=== PATIENT | male | born 1940 | race Caucasian/White ===

== ENCOUNTER 2022-06-22 21:24 | Emergency (ER) | payer OTHER ==
[~2022-06-22] VITALS: Ht 177.8 cm; Wt 75.0 kg
[2022-06-22] MEDS ORDERED: LIDOCAINE 2% 5ML JELLY UROJET TOP ONE (21:35)
[2022-06-22 22:00] VITALS: BP 167/101
[2022-06-22] MEDS ORDERED: ISOVUE-370 76% 100ML VIAL As Ordered ONE (22:36)
== END 2022-06-23 00:42 | disposition home or self-care (01) ==
LOC: M ED 21:24
DX: R31.9 Hematuria, unspecified (principal); R33.9 Retention of urine, unspecified; I10 Essential (primary) hypertension; N40.3 Nodular prostate with lower urinary tract symptoms; K57.30 Diverticulosis of large intestine without perforation or abscess without bleeding
CPT/HCPCS: 51703; 74178; 81000; 81015; 87086; 99284; Q9967

== ENCOUNTER 2024-03-15 12:07 | Inpatient (IN) | payer OTHER ==
[~2024-03-15] VITALS: Ht 175.3 cm; Wt 66.8 kg
[2024-03-15] MEDS ORDERED: LISI20TA33 PO (12:13)
[2024-03-15] MEDS ORDERED: FLOM0.4C39 PO (12:13)
[2024-03-15] MEDS ORDERED: LORazepam 2 MG TAB PO PRN (13:20)
[2024-03-15 13:41] LABS: BASO % 0.4 % (0.0-1.0); EOS % 0.1 % (0.0-3.0); HEMOGLOBIN 13.6 g/dl (13.5-17.5); LYMPH # 0.5 10^3/uL (1.5-5.0); MEAN CORPUSCULAR HEMOGLOBIN 36.9 pg (27.0-33.0); MEAN CORPUSCULAR HGB CONC 35.8 g/dl (32.0-36.5); MONO # 0.7 10^3/uL (0.0-0.8); MONO % 7.1 % (2.0-8.0); NEUTROPHILS # 8.5 10^3/uL (1.5-8.5); PLATELET COUNT, AUTOMATED 258 10^3/uL (150-450); RED BLOOD COUNT 3.69 10^6/uL (4.30-6.10); WHITE BLOOD COUNT 9.8 10^3/uL (4.0-10.0)
[2024-03-15 14:12] LABS: CK-MB VALUE MASS 2.6 NG/ML (<3.6); ETHYL ALCOHOL (ETHANOL) < 0.003 % (0.000-0.010); MAGNESIUM LEVEL 1.5 MG/DL (1.8-2.4)
[2024-03-15 14:15] LABS: FREE T4 1.06 NG/DL (0.89-1.76); THYROID STIMULATING HORMONE 2.707 uIU/ML (0.55-4.78)
[2024-03-15] MEDS: MULTIVITAMINS/MINERALS THERAP 1 TAB PO SCH (14:15)
[2024-03-15 14:16] LABS: VITAMIN B12 LEVEL 571 PG/ML (211-911)
[2024-03-15] MEDS: THIAMINE 100 MG TAB PO SCH (14:16)
[2024-03-15] MEDS: FOLIC ACID 1MG TAB PO SCH (14:16)
[2024-03-15 14:20] LABS: CPK CREATINE PHOSPHOKINASE 97 U/L (46-171); FOLATE 4.58 NG/ML (>5.4); MB/CK RELATIVE INDEX 2.68 (< OR =4)
[2024-03-15] MEDS: MAG SULF 1GM/100ML (MAG RUN) 1 GM in IV 1 EA IV ONE (14:54)
[2024-03-15 14:59] LABS: ALBUMIN 2.6 G/DL (3.2-5.2); ALKALINE PHOSPHATASE 185 U/L (46-116); ALT/SGPT 57 U/L (7.0-40); AST/SGOT 94 U/L (<34); BILIRUBIN,DIRECT 0.4 MG/DL (<0.4); TOTAL PROTEIN 6.1 G/DL (5.7-8.2)
[2024-03-15 15:28] LABS: CK-MB VALUE MASS 2.2 NG/ML (<3.6)
[2024-03-15 15:34] LABS: MB/CK RELATIVE INDEX 2.39 (< OR =4)
[2024-03-15] MEDS: NS 1,000 ML IV SCH (15:42)
[2024-03-15] MEDS ORDERED: HYDR-3490 PO (16:24)
[2024-03-15] MEDS ORDERED: LISI40TA4 PO (16:24)
[2024-03-15] MEDS ORDERED: hydrALAZINE 20MG/ML 1ML VIAL IV PRN (16:30)
[2024-03-15] MEDS: LOSARTAN 50MG TABLET PO ONE (16:53)
[2024-03-15 17:56] VITALS: BP 154/89; TEMP 97.4; O2SAT 99
[2024-03-15] MEDS: OXAZEPAM 10MG CAP PO SCH (18:12)
[2024-03-15 19:19] VITALS: BP 125/63; TEMP 97.6; O2SAT 99
[2024-03-15 23:12] LABS: AMPHETAMINES LEVEL URINE NEGATIVE (NEGATIVE); BENZODIAZEPINES URINE NEGATIVE (NEGATIVE)
[2024-03-15 23:13] LABS: BARBITURATES URINE NEGATIVE (NEGATIVE); CANNABINOIDS URINE NEGATIVE (NEGATIVE); COCAINE METABOLITE URINE NEGATIVE (NEGATIVE); METHADONE URINE NEGATIVE (NEGATIVE); OPIATES URINE NEGATIVE (NEGATIVE); PHENCYCLIDINE URINE NEGATIVE (NEGATIVE)
[2024-03-15 23:40] VITALS: BP 117/65; TEMP 97.6; O2SAT 97
[2024-03-16] VITALS (12 sets, daily range): BP systolic 72–157; BP diastolic 42–77; TEMP 96–97; O2SAT 97–100
[2024-03-16] MEDS: cloNIDine 0.1MG TABLET PO SCH
[2024-03-16 07:09] LABS: HEMATOCRIT 34.3 % (42.0-52.0); HEMOGLOBIN 12.1 g/dl (13.5-17.5); MEAN CORPUSCULAR HGB CONC 35.3 g/dl (32.0-36.5); MEAN CORPUSCULAR VOLUME 104.9 fl (80.0-96.0); PLATELET COUNT, AUTOMATED 224 10^3/uL (150-450); RED BLOOD COUNT 3.27 10^6/uL (4.30-6.10); WHITE BLOOD COUNT 6.1 10^3/uL (4.0-10.0)
[2024-03-16 07:15] LABS: BLOOD UREA NITROGEN 12 MG/DL (9-23); CALCIUM LEVEL 8.2 MG/DL (8.3-10.6); CARBON DIOXIDE LEVEL 28 MMOL/L (20-31); CHLORIDE LEVEL 105 MMOL/L (98-107); CREATININE FOR GFR 0.99 MG/DL (0.70-1.30); GLOMERULAR FILTRATION RATE > 60.0 (>35); GLUCOSE, FASTING 94 MG/DL (74-106); MAGNESIUM LEVEL 1.8 MG/DL (1.8-2.4); POTASSIUM SERUM 4.6 MMOL/L (3.5-5.1); SODIUM LEVEL 137 MMOL/L (136-145)
[2024-03-16 07:16] LABS: CHOLESTEROL LEVEL 149 MG/DL (<200); CHOLESTEROL RISK RATIO 2.07 (<5); HDL CHOLESTEROL 71.9 MG/DL (>40); LDL CHOLESTEROL 66.9 MG/DL (<100); NON-HDL-C 77.1 MG/DL; TRIGLYCERIDES LEVEL 51 MG/DL (<150)
[2024-03-16 07:20] LABS: THYROID STIMULATING HORMONE 2.822 uIU/ML (0.55-4.78)
[2024-03-16 07:37] LABS: HEPATITIS B SURFACE ANTIGEN NEGATIVE (NEGATIVE)
[2024-03-16 07:53] LABS: HEPATITIS C VIRUS ABY INDEX 0.03 INDEX (<0.8)
[2024-03-16 07:54] LABS: HEPATITIS B CORE ANTIBODY IGM NEGATIVE (NEGATIVE)
[2024-03-16] MEDS: NS 1,000 ML IV ONE ×2 (08:55→10:10)
[2024-03-16] MEDS: MIDODRINE 5 MG TAB PO SCH (08:55)
[2024-03-16] MEDS ORDERED: LOSARTAN 50MG TABLET PO SCH (09:00)
[2024-03-16 10:12] LABS: ABG BASE EXCESS -1.7 (-2.0-2.0); ABG HCO3 22.8 MMOL/L (22.0-26.0); ABG PARTIAL PRESSURE CO2 37.6 mmHg (35.0-45.0); ABG PARTIAL PRESSURE O2 82.3 mmHg (75.0-100.0); ABG TOTAL CO2 23.9 MMOL/L (23.0-31.0)
[2024-03-16] MEDS: cefTRIAXone SOD 1 GM in D5W MINI-BAG PLUS 50 ML IV SCH (11:23)
[2024-03-17] VITALS (7 sets, daily range): BP systolic 142–178; BP diastolic 74–90; TEMP 97.9–98.3; O2SAT 98–99
[2024-03-17] MEDS ORDERED: ISOVUE-370 76% 100ML VIAL As Ordered ONE (07:17)
[2024-03-17 08:19] LABS: HEMATOCRIT 32.6 % (42.0-52.0); HEMOGLOBIN 11.4 g/dl (13.5-17.5); MEAN CORPUSCULAR HEMOGLOBIN 37.5 pg (27.0-33.0); MEAN CORPUSCULAR VOLUME 107.2 fl (80.0-96.0); PLATELET COUNT, AUTOMATED 219 10^3/uL (150-450); RED BLOOD COUNT 3.04 10^6/uL (4.30-6.10)
[2024-03-17 08:38] LABS: BLOOD UREA NITROGEN 9 MG/DL (9-23); CALCIUM LEVEL 7.2 MG/DL (8.3-10.6); CARBON DIOXIDE LEVEL 25 MMOL/L (20-31); CHLORIDE LEVEL 108 MMOL/L (98-107); CREATININE FOR GFR 0.84 MG/DL (0.70-1.30); GLOMERULAR FILTRATION RATE > 60.0 (>35); MAGNESIUM LEVEL 1.5 MG/DL (1.8-2.4); POTASSIUM SERUM 3.9 MMOL/L (3.5-5.1); SODIUM LEVEL 137 MMOL/L (136-145)
[2024-03-17 08:47] LABS: GLUCOSE, FASTING 109 MG/DL (74-106)
[2024-03-17] MEDS ORDERED: ATOR1TAB21 PO (10:03)
[2024-03-17] MEDS ORDERED: THIA100TA PO (10:03)
[2024-03-17] MEDS ORDERED: MULT-90 PO (10:03)
[2024-03-17] MEDS ORDERED: FOLI1TAB11 PO (10:03)
[2024-03-17] MEDS ORDERED: ASPI81CH8 PO (10:03)
[2024-03-17] MEDS: TAMSULOSIN 0.4 MG CAP PO SCH (10:19)
[2024-03-17] MEDS: ASPIRIN 81MG CHEW TABLET PO SCH (10:19)
[2024-03-17] MEDS ORDERED: LEVO1TAB39 PO (10:59)
[2024-03-17] MEDS: lisinopriL 40MG TAB PO SCH (11:05)
[2024-03-17 12:08] LABS: ANTINUCLEAR ANTIBODIES DIRECT Negative (Negative)
[2024-03-17] MEDS ORDERED: SELF1KIT MC (13:04)
[2024-03-17] MEDS ORDERED: NORV5TAB PO (13:04)
[2024-03-17] MEDS: amLODIPine 5 MG TAB PO ONE (13:22)
[2024-03-17] MEDS: MAG SULF 1GM/100ML (MAG RUN) 1 GM in IV 1 EA IV ONE (13:22)
[2024-03-17] MEDS ORDERED: ATORVASTATIN 20 MG TAB PO SCH ×2 (21:00)
== END 2024-03-17 15:15 | disposition home or self-care (01) | DRG 73 ==
LOC: M ED 12:07 → M ED INP 15:55 → M PCU 17:45
PROVIDERS: ADMIT General Practice; ATTEND General Practice
PROC: B246ZZZ Ultrasonography of Right and Left Heart (ICD-10-PCS; principal; 2024-03-16)
DX: G62.1 Alcoholic polyneuropathy (principal); I63.9 Cerebral infarction, unspecified; F10.239 Alcohol dependence with withdrawal, unspecified; N39.0 Urinary tract infection, site not specified; G93.40 Encephalopathy, unspecified; Z66 Do not resuscitate; D64.9 Anemia, unspecified; I10 Essential (primary) hypertension; I27.20 Pulmonary hypertension, unspecified; N40.0 Benign prostatic hyperplasia without lower urinary tract symptoms; R29.6 Repeated falls; Z96.641 Presence of right artificial hip joint; I95.1 Orthostatic hypotension; E83.42 Hypomagnesemia; I16.0 Hypertensive urgency; Z79.899 Other long term (current) drug therapy; R00.1 Bradycardia, unspecified; T46.5X5A Adverse effect of other antihypertensive drugs, initial encounter